=== PATIENT | female | born 1965 | race African-American/Black ===

== ENCOUNTER → 2023-06-20 09:39 | Outpatient (CLI) | payer OTHER, MEDICAID, SELFPAY ==
[2023-06-20 10:36] LABS: Add Manual Diff / Slide Review NO; Basophils Absolute Auto 100 /uL (0-100); Basophils Percent Auto 0.5 % (0-2); Eosinophils Absolute Auto 300 /uL (0-450); Eosinophils Percent Auto 2.6 % (2-4); Hematocrit 35.3 % (36-46); Hemoglobin 11.6 g/dL (12.0-16.0); Lymphocytes Absolute Auto 3300 /uL (1100-4500); Lymphocytes Percent Auto 25.3 % (25-40); Mean Corpuscular Hemoglobin 28.2 PG (26-34); Mean Corpuscular Volume 85.6 fL (80-100); Monocytes Absolute Auto 600 /uL (0-900); Monocytes Percent Auto 4.8 % (3-14); Neutrophils Absolute Auto 8800 /uL (1500-7000); Neutrophils Percent Auto 66.8 % (50-75); Platelet Count 328 X10^3/uL (150-400); Red Blood Cell Count 4.12 X10^6/uL (4.0-5.2); White Blood Cell Count 13.1 X10^3/uL (4.5-11.0)
[2023-06-20 10:42] LABS: Hemoglobin A1C% w Est Avg Glu 5.5 % (4.0-6.0)
[2023-06-20 10:53] LABS: Alanine Aminotransferase 20 IU/L (<35); Albumin 4.7 g/dL (3.5-5.0); Albumin Globulin Ratio 1.3 (1.0-2.8); Alkaline Phosphatase 64 U/L (38-126); Aspartate Aminotransferase 29 IU/L (14-36); BUN Creatinine Ratio 20.7 (6-22); Bilirubin Total 0.8 mg/dL (0.2-1.3); Blood Urea Nitrogen 12 mg/dL (7-17); Carbon Dioxide 25 mmol/L (22-32); Chloride 104 mmol/L (98-107); Cholesterol 182 mg/dL (140-199); Estimated Glomerular Filt Rate > 60 mL/min (>60); Globulin 3.5 g/dL (1.7-4.1); Glucose 94 mg/dL (70-100); HDL Cholesterol 69 mg/dL (40-60); HEMOLYSIS < 15 (0-50); LDL Cholesterol Calculated 97 mg/dL (<100); Sodium 142 mmol/L (137-145); Total Protein 8.2 g/dL (6.3-8.2); Triglycerides 81 mg/dL (35-150)
[2023-06-20 10:58] LABS: Rheumatoid Factor < 8.6 IU/mL (<12.0)
[2023-06-20 11:24] LABS: TSH w/ Reflex to FT4 0.79 uIU/mL (0.47-4.68)
[2023-06-24 15:36] LABS: Deamidated Gliadin Ab IgA 7 units (0-19); Deamidated Gliadin Ab IgG 2 units (0-19); Immunoglobulin A,Qn 263 mg/dL (87-352); t-Transglutaminase IgA 3 U/mL (0-3)
[2023-06-24 17:47] LABS: CCP Antibodies IgG/IgA 8 units (0-19)
== END ==
PROVIDERS: PCP Family Medicine; Referring Provider Family Medicine; Visit Provider Family Medicine
DX: K46.9 Unspecified abdominal hernia without obstruction or gangrene (principal); M79.643 Pain in unspecified hand; R14.3 Flatulence; I10 Essential (primary) hypertension; E78.5 Hyperlipidemia, unspecified; M79.10 Myalgia, unspecified site
CPT/HCPCS: 36415; 80053; 80061; 82784; 83036; 83516; 84443; 85025; 86200; 86430

== ENCOUNTER → 2023-07-08 06:34 | Outpatient (CLI) | payer OTHER, MEDICAID, SELFPAY ==
--- NOTE | 2023-07-08 06:36 | DI.US.S_ITS ---
PROCEDURE: US ABDOMEN COMPLETE INDICATIONS: FLATUS TECHNIQUE: Real-time scanning was performed of the abdominal and retroperitoneal organs, with image documentation. COMPARISON: None. FINDINGS: Liver: The liver measures 18.2 cm in length and demonstrates slightly increased echogenicity. Gallbladder: The gallbladder is not visualized and may be surgically absent. Biliary ducts: Intrahepatic bile ducts are non-dilated. Extrahepatic bile duct caliber measures 7.7 mm. Normal is 6-7 mm or less in diameter, or 10 mm or less post-cholecystectomy. Pancreas: Visualized portions of the pancreas are sonographically normal. The tail of the pancreas is not visualized. Spleen: Spleen is normal in size and homogeneous in echotexture. Kidneys: Kidneys are normal in size and echotexture. Right kidney measures 11.7 cm long; left kidney measures 12.6 cm long. No hydronephrosis or nephrolithiasis. No solid masses. Aorta: Visualized aorta is normal in caliber at less than 3 cm. Iliacs: Proximal common iliac arteries are normal in caliber at less than 2.5 cm. IVC: Intrahepatic inferior vena cava is patent. Miscellaneous: No free abdominal fluid. There is a reducible, fat containing ventral hernia in the epigastric region. IMPRESSION: 1. Increased hepatic echogenicity noted likely related to fatty infiltration of the liver but other sources of hepatocellular disease cannot be excluded. 2. Gallbladder not visualized. Cholecystectomy suspected. 3. Fat containing reducible ventral hernia. Dictated by: Sonya De M.D. on 07/08/2023 at 10:31 Approved by: Sonya De M.D. on 07/08/2023 at 10:34
== END ==
LOC: US 06:34
PROVIDERS: PCP Family Medicine; Referring Provider Family Medicine; Visit Provider Family Medicine
DX: K43.9 Ventral hernia without obstruction or gangrene (principal); R14.3 Flatulence
CPT/HCPCS: 76700

== ENCOUNTER → 2023-07-11 06:30 | Outpatient (CLI) | payer OTHER, MEDICAID, SELFPAY ==
--- NOTE | 2023-07-11 06:31 | DI.US.S_ITS ---
PROCEDURE: US PELVIC COMPLETE INDICATIONS: concern for possibility of ovarian cancer with symptoms TECHNIQUE: Real-time scanning was performed of the pelvic organs, with image documentation. Additional endovaginal scanning was necessary due to incomplete visualization of the adnexal and endometrial structures by transabdominal scanning. COMPARISON: None. FINDINGS: Limited exam due to bowel gas. Uterus: Surgically absent Ovaries: The right ovary is not seen. A possible left ovary is seen transabdominally measuring 1.4 x 2.1 x 1.1 cm and is grossly unremarkable in appearance Other: No pathologic free abdominal or pelvic fluid. IMPRESSION: 1. Limited exam secondary to bowel gas. 2. The right ovary is not seen. A possible left ovary is seen transabdominally and is grossly normal in appearance. 3. Status post hysterectomy. We strive to produce accurate, complete, and clear reports of imaging services. To assist us in improving patient care, this report was composed using standard report templates and voice recognition software. Therefore, it may contain abnormal punctuation, insertions and/or omissions. Occasional wrong-word or sound-alike substitutions may occur. Though we review the report and make efforts to correct it, we do recommend that the report be read carefully in proper context to recognize any text inaccuracies. Dictated by: Manuelito Mckenzie M.D. on 07/11/2023 at 8:45 Approved by: Manuelito Mckenzie M.D. on 07/11/2023 at 8:47
== END ==
LOC: US 06:30
PROVIDERS: PCP Family Medicine; Referring Provider Family Medicine; Visit Provider Family Medicine
DX: Z85.42 Personal history of malignant neoplasm of other parts of uterus (principal); Z08 Encounter for follow-up examination after completed treatment for malignant neoplasm; Z90.710 Acquired absence of both cervix and uterus
CPT/HCPCS: 76830; 76856

== ENCOUNTER → 2024-05-07 07:40 | Outpatient (CLI) | payer OTHER, SELFPAY ==
--- NOTE | 2024-05-07 07:41 | DI.MG.S_ITS ---
BILATERAL DIGITAL SCREENING MAMMOGRAM 3D/2D WITH CAD: 05/07/2024 CLINICAL: Routine screening. Family history of breast cancer. Comparison is made to exams dated: 04/23/2022 mammogram and 06/15/2019 mammogram - Outside facility. There are scattered areas of fibroglandular density (category b / 25%-50% glandular tissue). Current study was also evaluated with a Computer Aided Detection (CAD) system. No significant masses, calcifications, or other findings are seen in either breast. There has been no significant interval change. IMPRESSION: NEGATIVE There is no mammographic evidence of malignancy. A 1 year screening mammogram is recommended. Based on the Tyrer Cuzick model (a risk assessment model) the patient's lifetime risk is 5.2% and her 10 year risk is 1.8%. According to the ACR, ACS, and NCCN guidelines, an annual breast MRI exam along with mammogram is recommended if the patient's lifetime risk is 20% or greater. This exam was interpreted at Station ID: [id number]. NOTE: For mammograms, a report in lay terms will be sent to the patient. Approximately 15% of breast malignancies will not be visualized mammographically. In the management of a palpable breast mass, a negative mammogram must not discourage biopsy of a clinically suspicious lesion. Electronically Signed By: Jose lugo/essence:05/07/2024 09:08:14 letter sent: Normal Exam ACR BI-RADS Category 1: Negative
[2024-05-07 08:15] LABS: Add Manual Diff / Slide Review NO; Basophils Absolute Auto 200 /uL (0-100); Basophils Percent Auto 1.2 % (0-2); Eosinophils Absolute Auto 400 /uL (0-450); Eosinophils Percent Auto 2.3 % (2-4); Hematocrit 35.7 % (36-46); Hemoglobin 11.9 g/dL (12.0-16.0); Lymphocytes Absolute Auto 4400 /uL (1100-4500); Lymphocytes Percent Auto 27.8 % (25-40); Mean Corpuscular HGB Conc 33.4 % (30-36); Mean Corpuscular Hemoglobin 29.4 PG (26-34); Monocytes Absolute Auto 800 /uL (0-900); Monocytes Percent Auto 4.8 % (3-14); Neutrophils Absolute Auto 10100 /uL (1500-7000); Neutrophils Percent Auto 63.9 % (50-75); Platelet Count 331 X10^3/uL (150-400); Red Blood Cell Count 4.06 X10^6/uL (4.0-5.2); Red Cell Distribution Width 14.6 % (11.6-14.8); White Blood Cell Count 15.8 X10^3/uL (4.5-11.0)
[2024-05-07 08:35] LABS: HEMOLYSIS < 15 (0-50); Iron 78 ug/dL (37-170)
[2024-05-07 08:38] LABS: Alanine Aminotransferase 20 IU/L (<35); Albumin 4.3 g/dL (3.5-5.0); Albumin Globulin Ratio 1.3 (1.0-2.8); Alkaline Phosphatase 68 U/L (38-126); Aspartate Aminotransferase 29 IU/L (14-36); BUN Creatinine Ratio 22.5 (6-22); Bilirubin Total 0.6 mg/dL (0.2-1.3); Blood Urea Nitrogen 16 mg/dL (7-17); Calcium 9.9 mg/dL (8.4-10.2); Carbon Dioxide 23 mmol/L (22-32); Chloride 107 mmol/L (98-107); Cholesterol 273 mg/dL (140-199); Estimated Glomerular Filt Rate > 60 mL/min (>60); Globulin 3.3 g/dL (1.7-4.1); Glucose 104 mg/dL (70-100); HDL Cholesterol 86 mg/dL (40-60); HEMOLYSIS 17 (0-50); LDL Cholesterol Calculated 133 mg/dL (<100); Potassium 4.2 mmol/L (3.4-5.1); Sodium 138 mmol/L (137-145); Total Protein 7.6 g/dL (6.3-8.2); Triglycerides 270 mg/dL (35-150)
[2024-05-07 08:46] LABS: Hemoglobin A1C% w Est Avg Glu 5.4 % (4.0-6.0)
[2024-05-07 08:47] LABS: Percent Iron Saturation 24 % (15-50); Total Iron Binding Capacity 321 ug/dL (265-497); Transferrin 307 mg/dL (206-381)
[2024-05-07 09:40] LABS: Folate 5.3 ng/mL (2.76-20.0); Vitamin B12 237 pg/mL (239-931)
== END ==
PROVIDERS: Family Provider Family Medicine; PCP Family Medicine; Referring Provider Family Medicine; Visit Provider Family Medicine
DX: Z12.31 Encounter for screening mammogram for malignant neoplasm of breast (principal); Z80.3 Family history of malignant neoplasm of breast; D64.9 Anemia, unspecified; R13.10 Dysphagia, unspecified; C55 Malignant neoplasm of uterus, part unspecified; E78.5 Hyperlipidemia, unspecified; I10 Essential (primary) hypertension
CPT/HCPCS: 36415; 77063; 77067; 80053; 80061; 82607; 82746; 83036; 83540; 83550; 85025

== ENCOUNTER → 2024-05-14 08:53 | Outpatient (CLI) | payer OTHER, SELFPAY ==
--- NOTE | 2024-05-14 08:55 | DI.RAD.S_ITS ---
PROCEDURE: FL BARIUM SWALLOW INDICATIONS: DYSPHAGIA COMPARISON: None. FINDINGS: Function: There is normal esophageal peristalsis. No elicited gastroesophageal reflux. There is normal transit of a calibrated barium tablet through the esophagus into the stomach. Morphology: Air-contrast images demonstrate normal mucosal morphology. Single contrast views show no esophageal strictures, extrinsic mass effects, or diverticula. Limited images of the stomach demonstrate normal appearance. IMPRESSION: 1. Normal esophageal peristalsis. No significant esophageal dysmotility. 2. No elicited gastroesophageal reflux. Dictated by: Manuelito Mckenzie M.D. on 05/14/2024 at 10:37 Approved by: Manuelito Mckenzie M.D. on 05/14/2024 at 11:01
== END ==
PROVIDERS: Family Provider Family Medicine; PCP Family Medicine; Referring Provider Radiology Diagnostic Radiology; Visit Provider Radiology Diagnostic Radiology
DX: R13.10 Dysphagia, unspecified (principal)
CPT/HCPCS: 74220

== ENCOUNTER → 2024-06-04 08:24 | Outpatient (CLI) | payer OTHER, SELFPAY ==
--- NOTE | 2024-06-04 08:25 | DI.RAD.S_ITS ---
PROCEDURE: XR LUMBAR SPINE 2-3V INDICATIONS: Chronic low back pain without sciatica, unspecified back lulu TECHNIQUE: 3 views of the lumbar spine were acquired. COMPARISON: None. FINDINGS: Bones: 5 [id number] vertebrae are present. There is normal bony alignment. No vertebral body compression fractures. No suspicious bony lesions. There is joint space narrowing at L5-S1. There is no malalignment. There is mild facet joint disease at L4 and L5 levels. Soft tissues: Overlying bowel gas pattern is normal. No suspicious soft tissue calcifications. IMPRESSION: Degenerative changes in the lumbar spine as noted above. Dictated by: David May M.D. on 06/04/2024 at 8:45 Approved by: David May M.D. on 06/04/2024 at 8:48
--- NOTE | 2024-06-04 08:25 | DI.RAD.S_ITS ---
PROCEDURE: XR HIP W PEL IF DONE RT 2V INDICATIONS: Pain of right hip TECHNIQUE: 2 views of the hip were acquired. COMPARISON: None. FINDINGS: Bones: No fractures or dislocations. No suspicious bony lesions. The visualized pelvic ring appears intact. Nonuniform joint space narrowing and osteophytic lipping of the acetabuli. Subchondral cystic change of the right hip, without bony deformity. Soft tissues: No suspicious soft tissue calcifications or masses. Surgical clips along the left pelvic sidewall. IMPRESSION: Moderate to severe right hip osteoarthritis. Dictated by: Mika Yao M.D. on 06/04/2024 at 14:23 Approved by: Mika Yao M.D. on 06/04/2024 at 14:23
== END ==
PROVIDERS: Family Provider Family Medicine; PCP Family Medicine; Referring Provider Family Medicine; Visit Provider Family Medicine
DX: M54.9 Dorsalgia, unspecified (principal); G89.29 Other chronic pain; M25.559 Pain in unspecified hip; M47.816 Spondylosis without myelopathy or radiculopathy, lumbar region; M16.11 Unilateral primary osteoarthritis, right hip
CPT/HCPCS: 72100; 73502

== ENCOUNTER 2024-06-14 07:30 | Outpatient (RCR) | payer OTHER, SELFPAY ==
--- NOTE | 2024-05-26 18:22 | PT.OIE ---
Current Diagnoses Other chronic pain (05/26/24) Cervicalgia (05/26/24) Dorsalgia, unspecified (05/26/24) Myalgia, unspecified site (05/26/24) Abnormal posture (05/26/24) Past Medical History (Last Updated 07/04/23 @ 20:02 by Breonna Lopez) Eczema Hand pain HLD (hyperlipidemia) HTN (hypertension) Sleep disturbance Uterine cancer Past Surgical History (Last Updated 06/19/23 @ 16:11 by Debora Fuentes MD) History of delivery History of hysterectomy History of umbilical hernia repair Visit Care Team Role Provider Type Debora Fuentes MD Attending Provider Physician Family Provider Primary Care Provider Referring Provider Specialty: Family Practice TECHNOLOGY INSTRUCTOR Address: [address] [place] [address], [facility] Email: [email or web address] Physical Therapy Initial Evaluation PT-OP-A Visit Information Start: 05/25/24 18:13 Freq: Status: Active Protocol: Document 05/26/24 09:09 [facility] (Rec: 05/26/24 09:50 [facility] [id number]) Out-Patient Physical Therapy Visit Information Visit Information Visit Type Initial Evaluation Visit Start Time 09:07 Visit Stop Time 09:47 Visit Number 1 Number of SUPERVISOR WET ROOM Visits 0 PT-OP-B Current Condition Start: 05/25/24 18:13 Freq: Status: Active Protocol: Document 05/26/24 09:09 [facility] (Rec: 05/26/24 09:50 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 She has pain between neck and LB. She has a calmer life but does work 7 days a week ([employer] and [employer]). Pain hasn't gotten better since doing less hard jobs. denies any MVA or injury that started this. occ will hear heart beat in ear d/t some BP issues. She is working w/MD re: BP. occ gets dizzy when sit up from bed. denies any other time. Reports she has been swollen in abdomen. Reports a lot of flatulence and hemroids. Had a barium swallow. BM regular. She occ ends up vomitting. Denies radiating symptoms in UEs/LEs. Wears back brace and it helps only some. Had uterine cancer and hysterectomy (2012)-having further follow up with this as a result. Had 4 c sections. Treatment Goals Patient/Caregiver Goals Dec pain when working PT-OP-C Subjective Start: 05/25/24 18:13 Freq: Status: Active Protocol: Document 05/26/24 09:09 [facility] (Rec: 05/26/24 09:50 [facility] [id number]) OP-PT Pain Assessment Location LB Pain Location Details lumbar to B buttocks Description With Movement Frequency Frequent Pain Aggravating Factors Standing,Bending,Lifting Other Pain Aggravating Factors long standing/walking, work Other Pain Alleviating Factors alieve (4 in AM and then take again later in day) neck Pain Location Details lower neck Description With Movement Frequency Frequent Radiating Location up back of neck to occipital region Pain Aggravating Factors Lifting Other Pain Aggravating Factors overhead reach, once rests Other Pain Alleviating Factors alieve (4 in AM and then take again later in day) PT-OP-G Mobility & Gait Start: 05/25/24 18:13 Freq: Status: Active Protocol: Document 05/26/24 09:09 [facility] (Rec: 05/26/24 09:50 [facility] [id number]) OP Gait Assessment Comments Gait Comments excessive rotation upper lumbar during gait, lat lean and dec push off PT-OP-J Posture/Palpation/Skin Start: 05/25/24 18:13 Freq: Status: Active Protocol: Document 05/26/24 09:09 [facility] (Rec: 05/26/24 09:50 [facility] [id number]) Posture Evaluation [facility] Postural Classification System [facility] Postural Classifications Posterior/Anterior Vertical Compression Test 1 Elbow Flexion Test 0 Lumbar Protective Mechanism Left AP 0 Lumbar Protective Mechanism Right AP 0 Lumbar Protective Mechanism Left PA 0 Lumbar Protective Mechanism Right PA 0 Comments Posture Comments L iliac crest higher, equal leg length, IR of L>R femur, L pelvic shear, L trunk rot, R scap mofr ant tipped, fwd neck , inc kyphosis, ant pelvic tilt PT-OP-L Special Tests Start: 05/25/24 18:13 Freq: Status: Active Protocol: Document 05/26/24 09:09 [facility] (Rec: 05/26/24 09:50 [facility] [id number]) Special Tests Lumbar Spine Special Tests Slump Test Results positiv B PT-OP-M Strength Start: 05/25/24 18:13 Freq: Status: Active Protocol: Document 05/26/24 09:09 [facility] (Rec: 05/26/24 09:50 [facility] [id number]) Hip Strength Hip Manual Muscle Testing Right Flexion (L2) 3+ Fair+ Extension (S1) 3 Fair Abduction 3 Fair External Rotation 4 Good Internal Rotation 5 Normal Left Flexion (L2) 3+ Fair+ Extension (S1) 3 Fair Abduction 3 Fair External Rotation 3 Fair Internal Rotation 5 Normal Knee Strength Knee Manual Muscle Testing Right Flexion (S2) 5 Normal Extension (L3) 5 Normal Left Flexion (S2) 5 Normal Extension (L3) 5 Normal PT-OP-T Assessment and Plan Start: 05/25/24 18:13 Freq: Status: Active Protocol: Document 05/26/24 09:09 [facility] (Rec: 05/26/24 09:50 [facility] [id number]) Physical Therapy Assessment Rehab Potential Rehabilitation Potential Good Evaluation Complexity Number of Personal Factors/Comorbidities 3 or More Number of Body Systems Impaired 4 or More Clinical Presentation at Evaluation Evolving Impairments Impairments Activity Tolerance,Balance, Functional Activities, Functional Mobility,Gait,Pain, Posture,ROM,Soft Tissue Mobility,Strength Other Concerns Barriers to Rehabilitation insurance limitation of visits Goals posture Fdc Goal (LTG) Pt will have improved posture by improvement in VCT to at least 4/5 to allwo greater time in standing w/o inc pain LTG Duration 4/2 ROM Short Term Goal (STG) Pt will report improved ease w /movement w/hips w/less feeling of tightness/ restriction STG Duration 3/2 [employer] Leader Goal (LTG) Pt will have w/in 80% of full range cervical ROM w/o inc pain to allow improved function LTG Duration 4/2 strength Short Term Goal (STG) Pt will be indep w/HEP STG Duration 3/2 [employer] Goal (LTG) Pt will score at least 4+/5 on MMT BLE and at least 3/5 EFT &LPM to show improved stability. 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 She has had multiple abdominal surgeries including C sections x4 and hysterectomy for uterine cancer which likely contributes to the pain d/t scar tissue. She also has significant hip and core weakness along impaired posture likely contributing to the neck and back pain. Pt would benefit from skilled PT to improve function and dec pain. Physical Therapy Plan Frequency and Duration Frequency of Treatment 2x/Week Duration of treatment (weeks) 10 Plan of Care Start Date 05/26/24 Plan of Care End Date 08/04/24 Therapeutic Interventions Therapeutic Interventions Balance Training,Gait Training ,Home Exercise Program,Joint Mobilizations,Manual Therapy, Neuromuscular Re-education, Patient/Caregiver Education, Self-Care/Home Management,Soft Tissue Mobilization,Taping, Therapeutic Activities, Therapeutic Exercises Modalities Cold Pack/Ice Massage,Electric Stimulation,Hot Packs, Infrared Therapy,Traction- Mechanical,Ultrasound Next Visit Focus/Plan Next Note Type Treatment Note Next Visit Plan Cervical ROM measurments * short visits when able d/t insurance limitations* HEP: paloff press, sidesteps, bridge,w all posture, open book,s eated SL hip flex iso for core manual: improve thoracic mobility, innominate and hip mobility
--- NOTE | 2024-05-26 18:23 | PT.OPPOC ---
Physical, Occupational & Speech Therapy At [facility] Current Diagnoses Other chronic pain (05/26/24) Cervicalgia (05/26/24) Dorsalgia, unspecified (05/26/24) Myalgia, unspecified site (05/26/24) Abnormal posture (05/26/24) Visit Care Team Role Provider Type Debora Fuentes MD Attending Provider Physician Family Provider Primary Care Provider Referring Provider Specialty: Family Practice MANAGEMENT SUPERVISOR Address: [facility] 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 She has pain between neck and LB. She has a calmer life but does work 7 days a week ([employer] and [employer]). Pain hasn't gotten better since doing less hard jobs. denies any MVA or injury that started this. occ will hear heart beat in ear d/t some BP issues. She is working w/MD re: BP. occ gets dizzy when sit up from bed. denies any other time. Reports she has been swollen in abdomen. Reports a lot of flatulence and hemroids. Had a barium swallow. BM regular. She occ ends up vomitting. Denies radiating symptoms in UEs/LEs. Wears back brace and it helps only some. Had uterine cancer and hysterectomy (2012)-having further follow up with this as a result. Had 4 c sections. Treatment Goals Patient/Caregiver Goals Dec pain when working PT-OP-T Assessment and Plan Start: 05/25/24 18:13 Freq: Status: Active Protocol: Document 05/26/24 09:09 [facility] (Rec: 05/26/24 09:50 [facility] [id number]) Physical Therapy Assessment Rehab Potential Rehabilitation Potential Good Evaluation Complexity Number of Personal Factors/Comorbidities 3 or More Number of Body Systems Impaired 4 or More Clinical Presentation at Evaluation Evolving Impairments Impairments Activity Tolerance,Balance, Functional Activities, Functional Mobility,Gait,Pain, Posture,ROM,Soft Tissue Mobility,Strength Other Concerns Barriers to Rehabilitation insurance limitation of visits Goals posture Jail Goal (LTG) Pt will have improved posture by improvement in VCT to at least 4/5 to allwo greater time in standing w/o inc pain LTG Duration 4/2 ROM Short Term Goal (STG) Pt will report improved ease w /movement w/hips w/less feeling of tightness/ restriction STG Duration 3/2 Jail Goal (LTG) Pt will have w/in 80% of full range cervical ROM w/o inc pain to allow improved function LTG Duration 4/2 strength Short Term Goal (STG) Pt will be indep w/HEP STG Duration 3/2 Jail Goal (LTG) Pt will score at least 4+/5 on MMT BLE and at least 3/5 EFT &LPM to show improved stability. 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 She has had multiple abdominal surgeries including C sections x4 and hysterectomy for uterine cancer which likely contributes to the pain d/t scar tissue. She also has significant hip and core weakness along impaired posture likely contributing to the neck and back pain. Pt would benefit from skilled PT to improve function and dec pain. Physical Therapy Plan Frequency and Duration Frequency of Treatment 2x/Week Duration of treatment (weeks) 10 Plan of Care Start Date 05/26/24 Plan of Care End Date 08/04/24 Therapeutic Interventions Therapeutic Interventions Balance Training,Gait Training ,Home Exercise Program,Joint Mobilizations,Manual Therapy, Neuromuscular Re-education, Patient/Caregiver Education, Self-Care/Home Management,Soft Tissue Mobilization,Taping, Therapeutic Activities, Therapeutic Exercises Modalities Cold Pack/Ice Massage,Electric Stimulation,Hot Packs, Infrared Therapy,Traction- Mechanical,Ultrasound Next Visit Focus/Plan Next Note Type Treatment Note Next Visit Plan Cervical ROM measurments * short visits when able d/t insurance limitations* HEP: paloff press, sidesteps, bridge,w all posture, open book,s eated SL hip flex iso for core manual: improve thoracic mobility, innominate and hip mobility Plan of Care Dates Plan of Care Start Date 05/26/24 Plan of Care End Date 08/04/24 Electronically Signed by: Aye Kaba, PT 05/26/24 2729 If you are in agreement with this Plan of Care, please return a signed and dated copy. I have reviewed this Plan of Care and certify that the skilled therapy services above are required to meet the patient?s needs. Physician Signature Date Printed Name and Credentials Clinical Instructor Signature Printed Name and Credentials
--- NOTE | 2024-06-01 12:32 | PT.OTN ---
Current Diagnoses Other chronic pain (06/01/24) Cervicalgia (06/01/24) Dorsalgia, unspecified (06/01/24) Myalgia, unspecified site (06/01/24) Abnormal posture (06/01/24) Physical Therapy Treatment Note PT-OP-A Visit Information Start: 05/25/24 18:13 Freq: Status: Active Protocol: Document 06/01/24 11:36 [facility] (Rec: 06/01/24 12:32 [facility] [id number]) Out-Patient Physical Therapy Visit Information Visit Information Visit Type Treatment Note Visit Start Time 11:37 Visit Stop Time 12:17 Visit Number 2 Number of HISTORICAL MANUSCRIPTS CURATOR Visits 0 PT-OP-B Current Condition Start: 05/25/24 18:13 Freq: Status: Active Protocol: Document 05/26/24 09:09 [facility] (Rec: 05/26/24 09:50 [facility] [id number]) Current Condition History of Current Condition Onset Date about 19 years Current Complaints neck to LB History of Current Condition 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 She has pain between neck and LB. She has a calmer life but does work 7 days a week ([employer] and [employer]). Pain hasn't gotten better since doing less hard jobs. denies any MVA or injury that started this. occ will hear heart beat in ear d/t some BP issues. She is working w/MD re: BP. occ gets dizzy when sit up from bed. denies any other time. Reports she has been swollen in abdomen. Reports a lot of flatulence and hemroids. Had a barium swallow. BM regular. She occ ends up vomitting. Denies radiating symptoms in UEs/LEs. Wears back brace and it helps only some. Had uterine cancer and hysterectomy (2012)-having further follow up with this as a result. Had 4 c sections. Treatment Goals Patient/Caregiver Goals Dec pain when working PT-OP-C Subjective Start: 05/25/24 18:13 Freq: Status: Active Protocol: Document 06/01/24 11:36 [facility] (Rec: 06/01/24 12:32 [facility] [id number]) OP-PT Subjective Patient Comments Patient Comments Pt reports R>L hip really restrict her ability to move PT-OP-G Mobility & Gait Start: 05/25/24 18:13 Freq: Status: Active Protocol: Document 05/26/24 09:09 [facility] (Rec: 05/26/24 09:50 [facility] [id number]) OP Gait Assessment Comments Gait Comments excessive rotation upper lumbar during gait, lat lean and dec push off PT-OP-J Posture/Palpation/Skin Start: 05/25/24 18:13 Freq: Status: Active Protocol: Document 05/26/24 09:09 [facility] (Rec: 05/26/24 09:50 [facility] [id number]) Posture Evaluation [facility] Postural Classification System [facility] Postural Classifications Posterior/Anterior Vertical Compression Test 1 Elbow Flexion Test 0 Lumbar Protective Mechanism Left AP 0 Lumbar Protective Mechanism Right AP 0 Lumbar Protective Mechanism Left PA 0 Lumbar Protective Mechanism Right PA 0 Comments Posture Comments L iliac crest higher, equal leg length, IR of L>R femur, L pelvic shear, L trunk rot, R scap mofr ant tipped, fwd neck , inc kyphosis, ant pelvic tilt PT-OP-K Range of Motion Start: 05/25/24 18:13 Freq: Status: Active Protocol: Document 06/01/24 11:36 [facility] (Rec: 06/01/24 12:32 [facility] [id number]) Cervical Spine Range of Motion Cervical Spine Active Degrees Flexion 27 Extension 16 Rotation Left 34 Rotation Right 35 Lateral Flexion Left 16 Lateral Flexion Right 10 ROM Limitations Pain PT-OP-L Special Tests Start: 05/25/24 18:13 Freq: Status: Active Protocol: Document 05/26/24 09:09 [facility] (Rec: 05/26/24 09:50 [facility] [id number]) Special Tests Lumbar Spine Special Tests Slump Test Results positiv B PT-OP-M Strength Start: 05/25/24 18:13 Freq: Status: Active Protocol: Document 05/26/24 09:09 [facility] (Rec: 05/26/24 09:50 [facility] [id number]) Hip Strength Hip Manual Muscle Testing Right Flexion (L2) 3+ Fair+ Extension (S1) 3 Fair Abduction 3 Fair External Rotation 4 Good Internal Rotation 5 Normal Left Flexion (L2) 3+ Fair+ Extension (S1) 3 Fair Abduction 3 Fair External Rotation 3 Fair Internal Rotation 5 Normal Knee Strength Knee Manual Muscle Testing Right Flexion (S2) 5 Normal Extension (L3) 5 Normal Left Flexion (S2) 5 Normal Extension (L3) 5 Normal PT-OP-Q Treatments Start: 05/25/24 18:13 Freq: Status: Active Protocol: Document 06/01/24 11:36 [facility] (Rec: 06/01/24 12:32 [facility] [id number]) Therapeutic Exercises Sidelying Exercises open book Side bilateral Reps/Minutes 15 ea Comments cues for position and tspine rot focus clamshell Side bilateral Reps/Minutes 15 ea Comments cues to avoid rolling Sitting Exercises cervical stretches Sitting Exercise Name 1. LS Side bilateral Reps/Minutes 30 sec ea hip stretches Sitting Exercise Name 1. HS 2. piriformis 3. figure 4 Side bilateral Reps/Minutes 1. 45 sec B 2 and 3. unable to do w/o inc pain Standing Exercises stretch Standing Exercise Name hip flexor Side bilateral Comments attempted B mult times w/cues but just gets pain in back so stopped sidestep Side bilateral Equipment Used L1 at ankles Reps/Minutes 15ft ea Comments cues posture and no lat lean paloff press Side bilateral Equipment Used 2 lvl 1 bands Reps/Minutes 15 ea Comments cues core and staying stable Manual Therapy Treatment Consent Patient gave verbal consent for manual Yes treatment Joint Mobilizations hip Grade II Body Position Hooklying Comments IR and ER free the ball B and inf glide c/r PT-OP-T Assessment and Plan Start: 05/25/24 18:13 Freq: Status: Active Protocol: Document 06/01/24 11:36 [facility] (Rec: 06/01/24 12:32 [facility] [id number]) Physical Therapy Assessment Goals posture Fpc Goal (LTG) Pt will have improved posture by improvement in VCT to at least 4/5 to allwo greater time in standing w/o inc pain LTG Duration 4/2 ROM Short Term Goal (STG) Pt will report improved ease w /movement w/hips w/less feeling of tightness/ restriction STG Duration 3/2 Book Reviewer Goal (LTG) Pt will have w/in 80% of full range cervical ROM w/o inc pain to allow improved function LTG Duration 4/2 strength Short Term Goal (STG) Pt will be indep w/HEP STG Duration 3/2 Fpc Goal (LTG) Pt will score at least 4+/5 on MMT BLE and at least 3/5 EFT &LPM to show improved stability. LTG Duration 4/2 Assessment Summary Assessment min improved L hip flex and IR B w/manual to hips. She had pain w/mobs on R even w/gentle mobs so may benefit from imaging of hips. She requires cues for form with exercises for form and posture throughout. Unable to get hip stretches except HS stretch d/ t limit of hip pain lat. Physical Therapy Plan Frequency and Duration Frequency of Treatment 2x/Week Duration of treatment (weeks) 10 Plan of Care Start Date 05/26/24 Plan of Care End Date 08/04/24 Next Visit Focus/Plan Next Note Type Treatment Note Next Visit Plan * short visits when able d/t insurance limitations* review exercises, further core and hip stability as pt tolerates manual: improve thoracic mobility, innominate and hip mobility
--- NOTE | 2024-06-07 08:12 | PT.OTN ---
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 She has pain between neck and LB. She has a calmer life but does work 7 days a week ([employer] and [employer]). Pain hasn't gotten better since doing less hard jobs. denies any MVA or injury that started this. occ will hear heart beat in ear d/t some BP issues. She is working w/MD re: BP. occ gets dizzy when sit up from bed. denies any other time. Reports she has been swollen in abdomen. Reports a lot of flatulence and hemroids. Had a barium swallow. BM regular. She occ ends up vomitting. Denies radiating symptoms in UEs/LEs. Wears back brace and it helps only some. Had uterine cancer and hysterectomy (2012)-having further follow up with this as a result. Had 4 c sections. Treatment Goals Patient/Caregiver Goals Dec pain when working PT-OP-C Subjective Start: 05/25/24 18:13 Freq: Status: Active Protocol: Document 06/07/24 07:31 [facility] (Rec: 06/07/24 08:17 [facility] [id number]) OP-PT Subjective Patient Comments Patient Comments Pt reports hurts all the time. The HEP feels fine to issues and compliant doing. She hasnt ' noticed the HEP helping decrease pain yet. Patient Reported Progress Same PT-OP-G Mobility & Gait Start: 05/25/24 18:13 Freq: Status: Active Protocol: Document 05/26/24 09:09 [facility] (Rec: 05/26/24 09:50 [facility] [id number]) OP Gait Assessment Comments Gait Comments excessive rotation upper lumbar during gait, lat lean and dec push off PT-OP-J Posture/Palpation/Skin Start: 05/25/24 18:13 Freq: Status: Active Protocol: Document 05/26/24 09:09 [facility] (Rec: 05/26/24 09:50 [facility] [id number]) Posture Evaluation [facility] Postural Classification System [facility] Postural Classifications Posterior/Anterior Vertical Compression Test 1 Elbow Flexion Test 0 Lumbar Protective Mechanism Left AP 0 Lumbar Protective Mechanism Right AP 0 Lumbar Protective Mechanism Left PA 0 Lumbar Protective Mechanism Right PA 0 Comments Posture Comments L iliac crest higher, equal leg length, IR of L>R femur, L pelvic shear, L trunk rot, R scap mofr ant tipped, fwd neck , inc kyphosis, ant pelvic tilt PT-OP-K Range of Motion Start: 05/25/24 18:13 Freq: Status: Active Protocol: Document 06/01/24 11:36 [facility] (Rec: 06/01/24 12:32 [facility] [id number]) Cervical Spine Range of Motion Cervical Spine Active Degrees Flexion 27 Extension 16 Rotation Left 34 Rotation Right 35 Lateral Flexion Left 16 Lateral Flexion Right 10 ROM Limitations Pain PT-OP-L Special Tests Start: 05/25/24 18:13 Freq: Status: Active Protocol: Document 05/26/24 09:09 [facility] (Rec: 05/26/24 09:50 [facility] [id number]) Special Tests Lumbar Spine Special Tests Slump Test Results positiv B PT-OP-M Strength Start: 05/25/24 18:13 Freq: Status: Active Protocol: Document 05/26/24 09:09 [facility] (Rec: 05/26/24 09:50 [facility] [id number]) Hip Strength Hip Manual Muscle Testing Right Flexion (L2) 3+ Fair+ Extension (S1) 3 Fair Abduction 3 Fair External Rotation 4 Good Internal Rotation 5 Normal Left Flexion (L2) 3+ Fair+ Extension (S1) 3 Fair Abduction 3 Fair External Rotation 3 Fair Internal Rotation 5 Normal Knee Strength Knee Manual Muscle Testing Right Flexion (S2) 5 Normal Extension (L3) 5 Normal Left Flexion (S2) 5 Normal Extension (L3) 5 Normal PT-OP-Q Treatments Start: 05/25/24 18:13 Freq: Status: Active Protocol: Document 06/07/24 07:31 [facility] (Rec: 06/07/24 08:17 [facility] [id number]) Therapeutic Exercises Supine Exercises Stretching Supine Exercise Name trialed: piriformis, FIg 4 and Maximiliano stretch Side right Comments causes pain, DC Sidelying Exercises open book Side bilateral Reps/Minutes 15 ea Comments cues for position and tspine rot focus, scap glide both directions clamshell Side bilateral Equipment Used top hand on table Reps/Minutes 15 ea Comments cues stacked alignment ASIS over ASIS Standing Exercises stretch Standing Exercise Name LB and adductor (free the hip ) Side bilateral Comments wt shift, hip and LB mobiltiy with good response lessening R hip and LB Other Exercises self STMs Other Exercise Name ball wall: glut, ES Side bilateral Comments good response Manual Therapy Treatment Consent Patient gave verbal consent for manual Yes treatment Soft Tissue Mobilization B hips Body Location hip ERs Mobilization Type Strumming,Sustained Pressure, Other Comments STMs: glut med, piriformis; MWM PA prox femur on axis hip IR/ER R>L Joint Mobilizations hip Grade II Body Position Hooklying Comments Hooklying: IR and ER free the ball B and lateral glide, didn 't tolerate inferior glide today. PT-OP-T Assessment and Plan Start: 05/25/24 18:13 Freq: Status: Active Protocol: Document 06/07/24 07:31 [facility] (Rec: 06/07/24 08:17 [facility] [id number]) Physical Therapy Assessment Goals posture Director Of Email Marketing Goal (LTG) Pt will have improved posture by improvement in VCT to at least 4/5 to allwo greater time in standing w/o inc pain LTG Duration 4/2 ROM Short Term Goal (STG) Pt will report improved ease w /movement w/hips w/less feeling of tightness/ restriction STG Duration 3/2 Director Of Email Marketing Goal (LTG) Pt will have w/in 80% of full range cervical ROM w/o inc pain to allow improved function LTG Duration 4/2 strength Short Term Goal (STG) Pt will be indep w/HEP STG Duration 3/2 Director Of Email Marketing Goal (LTG) Pt will score at least 4+/5 on MMT BLE and at least 3/5 EFT &LPM to show improved stability. LTG Duration 4/2 Assessment Summary Assessment Pt doesn't respond well to supine hip stretching, no pain MWM hip IR/ER. added adductor stretch and hip mobility in side lunge stance rocking each side and stretching hold, improved range and decreased tension with reps. Provided HOs. Physical Therapy Plan Frequency and Duration Frequency of Treatment 2x/Week Duration of treatment (weeks) 10 Plan of Care Start Date 05/26/24 Plan of Care End Date 08/04/24 Therapeutic Interventions Therapeutic Interventions Balance Training,Gait Training ,Home Exercise Program,Joint Mobilizations,Manual Therapy, Neuromuscular Re-education, Patient/Caregiver Education, Self-Care/Home Management,Soft Tissue Mobilization,Taping, Therapeutic Activities, Therapeutic Exercises Modalities Cold Pack/Ice Massage,Electric Stimulation,Hot Packs, Infrared Therapy,Traction- Mechanical,Ultrasound Next Visit Focus/Plan Next Note Type Treatment Note Next Visit Plan * short visits when able d/t insurance limitations* review exercises, further core and hip stability as pt tolerates manual: improve thoracic mobility, innominate and hip mobility
--- NOTE | 2024-06-14 08:08 | PT.OTN ---
Current Diagnoses Other chronic pain (06/14/24) Cervicalgia (06/14/24) Dorsalgia, unspecified (06/14/24) Myalgia, unspecified site (06/14/24) Abnormal posture (06/14/24) Physical Therapy Treatment Note PT-OP-A Visit Information Start: 05/25/24 18:13 Freq: Status: Active Protocol: Document 06/14/24 07:32 SP (Rec: 06/14/24 08:19 SP [id number]) Out-Patient Physical Therapy Visit Information Visit Information Visit Type Treatment Note Visit Note *short 2 unit visits when able d/t insurance limitations Visit Start Time 07:32 Visit Stop Time 08:08 Visit Number 4/ approved Number of [employer] SUPERVISOR Visits 2 PT-OP-B Current Condition Start: 05/25/24 18:13 Freq: Status: Active Protocol: Document 05/26/24 09:09 [facility] (Rec: 05/26/24 09:50 [facility] [id number]) Current Condition History of Current Condition Onset Date about 19 years Current Complaints neck to LB History of Current Condition 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 She has pain between neck and LB. She has a calmer life but does work 7 days a week ([employer]). Pain hasn't gotten better since doing less hard jobs. denies any MVA or injury that started this. occ will hear heart beat in ear d/t some BP issues. She is working w/MD re: BP. occ gets dizzy when sit up from bed. denies any other time. Reports she has been swollen in abdomen. Reports a lot of flatulence and hemroids. Had a barium swallow. BM regular. She occ ends up vomitting. Denies radiating symptoms in UEs/LEs. Wears back brace and it helps only some. Had uterine cancer and hysterectomy (2012)-having further follow up with this as a result. Had 4 c sections. Treatment Goals Patient/Caregiver Goals Dec pain when working PT-OP-C Subjective Start: 05/25/24 18:13 Freq: Status: Active Protocol: Document 06/14/24 07:32 SP (Rec: 06/14/24 08:19 SP [id number]) OP-PT Subjective Patient Comments Patient Comments Pt reports she is good with the seated stretching to help decreased pain and increase mobility. She performs open book and incorporates her self modified supine mobility core boat pose BLE press outs before gets out out of bed to loosen up, when wakes up the morning which helps to be able to move for the day. PT-OP-G Mobility & Gait Start: 05/25/24 18:13 Freq: Status: Active Protocol: Document 05/26/24 09:09 [facility] (Rec: 05/26/24 09:50 [facility] [id number]) OP Gait Assessment Comments Gait Comments excessive rotation upper lumbar during gait, lat lean and dec push off PT-OP-J Posture/Palpation/Skin Start: 05/25/24 18:13 Freq: Status: Active Protocol: Document 05/26/24 09:09 [facility] (Rec: 05/26/24 09:50 [id number] Posture Evaluation [facility] Postural Classification System [facility] Postural Classifications Posterior/Anterior Vertical Compression Test 1 Elbow Flexion Test 0 Lumbar Protective Mechanism Left AP 0 Lumbar Protective Mechanism Right AP 0 Lumbar Protective Mechanism Left PA 0 Lumbar Protective Mechanism Right PA 0 Comments Posture Comments L iliac crest higher, equal leg length, IR of L>R femur, L pelvic shear, L trunk rot, R scap mofr ant tipped, fwd neck , inc kyphosis, ant pelvic tilt PT-OP-K Range of Motion Start: 05/25/24 18:13 Freq: Status: Active Protocol: Document 06/01/24 11:36 [facility] (Rec: 06/01/24 12:32 [facility] [id number]) Cervical Spine Range of Motion Cervical Spine Active Degrees Flexion 27 Extension 16 Rotation Left 34 Rotation Right 35 Lateral Flexion Left 16 Lateral Flexion Right 10 ROM Limitations Pain PT-OP-L Special Tests Start: 05/25/24 18:13 Freq: Status: Active Protocol: Document 05/26/24 09:09 [facility] (Rec: 05/26/24 09:50 [facility] [id number]) Special Tests Lumbar Spine Special Tests Slump Test Results positiv B PT-OP-M Strength Start: 05/25/24 18:13 Freq: Status: Active Protocol: Document 05/26/24 09:09 [facility] (Rec: 05/26/24 09:50 [facility] [id number]) Hip Strength Hip Manual Muscle Testing Right Flexion (L2) 3+ Fair+ Extension (S1) 3 Fair Abduction 3 Fair External Rotation 4 Good Internal Rotation 5 Normal Left Flexion (L2) 3+ Fair+ Extension (S1) 3 Fair Abduction 3 Fair External Rotation 3 Fair Internal Rotation 5 Normal Knee Strength Knee Manual Muscle Testing Right Flexion (S2) 5 Normal Extension (L3) 5 Normal Left Flexion (S2) 5 Normal Extension (L3) 5 Normal PT-OP-Q Treatments Start: 05/25/24 18:13 Freq: Status: Active Protocol: Document 06/14/24 07:32 SP (Rec: 06/14/24 08:19 SP [id number]) Therapeutic Exercises Supine Exercises LTR Supine Exercise Name added to HEp /c HO Side bilateral Resistance AROM Reps/Minutes 10 slow motion Comments QL & LS stretch, cues for TA fac hooklying resisted clamshell Supine Exercise Name added to HEP /c HO Equipment Used TB #2 teal Reps/Minutes 15 reps Modified BLE mobility boat pose Supine Exercise Name reviewed a self HEP: core Equipment Used BLE pressing out together, with head down then lifted as warmed up Reps/Minutes 5 reps x2 Comments good form, no pain DL core press Supine Exercise Name added to HEP: 90/90 isometric- forgot to give copy on HO ( give next tx) Side bilateral Equipment Used hands against knees Reps/Minutes 30 SH x2. Comments good response, no pain Sidelying Exercises open book Sidelying Exercise Name reviewed Side bilateral Reps/Minutes 15 ea Comments cues for position and tspine rot focus, scap glide both directions clamshell Sidelying Exercise Name reviewed Side bilateral Resistance TB #2 teal added today. Equipment Used top hand on table Reps/Minutes 15 ea Comments cues stacked alignment ASIS over ASIS Sitting Exercises hip stretches Sitting Exercise Name 1. HS 2. piriformis 3. figure 4 Side bilateral Reps/Minutes 1. 45 sec B 2 and 3. unable to do w/o inc pain Comments cued straight back/hip hinge during HS Standing Exercises sidestep Side bilateral Equipment Used L1> 2 at ankles Reps/Minutes 15ft ea x2 laps Comments cues posture and no lat lean PT-OP-T Assessment and Plan Start: 05/25/24 18:13 Freq: Status: Active Protocol: Document 06/14/24 07:32 SP (Rec: 06/14/24 08:19 SP [id number]) Physical Therapy Assessment Goals posture Torch Cutter Goal (LTG) Pt will have improved posture by improvement in VCT to at least 4/5 to allwo greater time in standing w/o inc pain LTG Duration 4/2 ROM Short Term Goal (STG) Pt will report improved ease w /movement w/hips w/less feeling of tightness/ restriction STG Duration 3/2 Torch Cutter Goal (LTG) Pt will have w/in 80% of full range cervical ROM w/o inc pain to allow improved function LTG Duration 4/2 strength Short Term Goal (STG) Pt will be indep w/HEP STG Duration 3/2 Intermediate Goal (LTG) Pt will score at least 4+/5 on MMT BLE and at least 3/5 EFT &LPM to show improved stability. LTG Duration 4/2 Assessment Summary Assessment Pt is having good response to warm up TS and LS rotational movements for prep to get out of bed. Initiated core HEP today with cues for slow painfree range, PPT positioning and ability increased resistance with previous clamshells to support spinal stabilization. Physical Therapy Plan Frequency and Duration Frequency of Treatment 2x/Week Duration of treatment (weeks) 10 Plan of Care Start Date 05/26/24 Plan of Care End Date 08/04/24 Therapeutic Interventions Therapeutic Interventions Balance Training,Gait Training ,Home Exercise Program,Joint Mobilizations,Manual Therapy, Neuromuscular Re-education, Patient/Caregiver Education, Self-Care/Home Management,Soft Tissue Mobilization,Taping, Therapeutic Activities, Therapeutic Exercises Modalities Cold Pack/Ice Massage,Electric Stimulation,Hot Packs, Infrared Therapy,Traction- Mechanical,Ultrasound Next Visit Focus/Plan Next Note Type Treatment Note Next Visit Plan * short visits when able d/t insurance limitations* Recheck slow proper form supine clam. Progress core and hip stability as pt tolerates , trial plank and paloff press . manual: improve thoracic mobility, innominate and hip mobility
--- NOTE | 2024-06-23 07:41 | PT-OP ANOTE ---
Pt called re: no show and VM left re: policy and next scheduled visit. phone number given if she wants to reschedule
--- NOTE | 2024-08-18 12:28 | PT.OPDS ---
Current Diagnoses Other chronic pain (06/14/24) Cervicalgia (06/14/24) Dorsalgia, unspecified (06/14/24) Myalgia, unspecified site (06/14/24) Abnormal posture (06/14/24) Visit Care Team Role Provider Type Debora Fuentes MD Attending Provider Physician Family Provider Primary Care Provider Referring Provider Specialty: Family Practice [employer] Address: [address] [place] [address], [facility] Email: [email or web address] Visit Number Visit Number 08/11 approved Discharge Summary PT-OP-B Current Condition Start: 05/25/24 18:13 Freq: Status: Active Protocol: Document 05/26/24 09:09 [facility] (Rec: 05/26/24 09:50 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 She has pain between neck and LB. She has a calmer life but does work 7 days a week ([employer]). Pain hasn't gotten better since doing less hard jobs. denies any MVA or injury that started this. occ will hear heart beat in ear d/t some BP issues. She is working w/MD re: BP. occ gets dizzy when sit up from bed. denies any other time. Reports she has been swollen in abdomen. Reports a lot of flatulence and hemroids. Had a barium swallow. BM regular. She occ ends up vomitting. Denies radiating symptoms in UEs/LEs. Wears back brace and it helps only some. Had uterine cancer and hysterectomy (2012)-having further follow up with this as a result. Had 4 c sections. Treatment Goals Patient/Caregiver Goals Dec pain when working PT-OP-C Subjective Start: 05/25/24 18:13 Freq: Status: Active Protocol: Document 06/14/24 07:32 SP (Rec: 06/14/24 08:19 SP [id number]) OP-PT Subjective Patient Comments Patient Comments Pt reports she is good with the seated stretching to help decreased pain and increase mobility. She performs open book and incorporates her self modified supine mobility core boat pose BLE press outs before gets out out of bed to loosen up, when wakes up the morning which helps to be able to move for the day. PT-OP-G Mobility & Gait Start: 05/25/24 18:13 Freq: Status: Active Protocol: Document 05/26/24 09:09 [facility] (Rec: 05/26/24 09:50 [facility] [id number]) OP Gait Assessment Comments Gait Comments excessive rotation upper lumbar during gait, lat lean and dec push off PT-OP-J Posture/Palpation/Skin Start: 05/25/24 18:13 Freq: Status: Active Protocol: Document 05/26/24 09:09 [facility] (Rec: 05/26/24 09:[id number] Posture Evaluation [facility] Postural Classification System [facility] Postural Classifications Posterior/Anterior Vertical Compression Test 1 Elbow Flexion Test 0 Lumbar Protective Mechanism Left AP 0 Lumbar Protective Mechanism Right AP 0 Lumbar Protective Mechanism Left PA 0 Lumbar Protective Mechanism Right PA 0 Comments Posture Comments L iliac crest higher, equal leg length, IR of L>R femur, L pelvic shear, L trunk rot, R scap mofr ant tipped, fwd neck , inc kyphosis, ant pelvic tilt PT-OP-K Range of Motion Start: 05/25/24 18:13 Freq: Status: Active Protocol: Document 06/01/24 11:36 [facility] (Rec: 06/01/24 12:32 [facility] [id number]) Cervical Spine Range of Motion Cervical Spine Active Degrees Flexion 27 Extension 16 Rotation Left 34 Rotation Right 35 Lateral Flexion Left 16 Lateral Flexion Right 10 ROM Limitations Pain PT-OP-L Special Tests Start: 05/25/24 18:13 Freq: Status: Active Protocol: Document 05/26/24 09:09 [facility] (Rec: 05/26/24 09:50 [facility] [id number]) Special Tests Lumbar Spine Special Tests Slump Test Results positiv B PT-OP-M Strength Start: 05/25/24 18:13 Freq: Status: Active Protocol: Document 05/26/24 09:09 [facility] (Rec: 05/26/24 09:50 [facility] [id number]) Hip Strength Hip Manual Muscle Testing Right Flexion (L2) 3+ Fair+ Extension (S1) 3 Fair Abduction 3 Fair External Rotation 4 Good Internal Rotation 5 Normal Left Flexion (L2) 3+ Fair+ Extension (S1) 3 Fair Abduction 3 Fair External Rotation 3 Fair Internal Rotation 5 Normal Knee Strength Knee Manual Muscle Testing Right Flexion (S2) 5 Normal Extension (L3) 5 Normal Left Flexion (S2) 5 Normal Extension (L3) 5 Normal PT-OP-T Assessment and Plan Start: 05/25/24 18:13 Freq: Status: Active Protocol: Document 08/18/24 12:27 [facility] (Rec: 08/18/24 12:28 [facility] [id number]) Physical Therapy Assessment Goals posture Pin Sticker Goal (LTG) Pt will have improved posture by improvement in VCT to at least 4/5 to allwo greater time in standing w/o inc pain LTG Duration 4/2 ROM Short Term Goal (STG) Pt will report improved ease w /movement w/hips w/less feeling of tightness/ restriction STG Duration 3/2 Pin Sticker Goal (LTG) Pt will have w/in 80% of full range cervical ROM w/o inc pain to allow improved function LTG Duration 4/2 strength Short Term Goal (STG) Pt will be indep w/HEP STG Duration 3/2 Pin Sticker Goal (LTG) Pt will score at least 4+/5 on MMT BLE and at least 3/5 EFT &LPM to show improved stability. LTG Duration 4/2 Assessment Summary Assessment Pt made limited progress w/PT and was having significant pain. No showed appt then cancelled last and did not follow up to schedule more. DC d/t no longer attending PT Physical Therapy Plan Discharge Physical Therapy Discharge Reasons No Longer Attending PT
== END 2024-08-19 09:43 | disposition home or self-care (01) ==
LOC: PHYS 07:30
PROVIDERS: Family Provider Family Medicine; PCP Family Medicine; Referring Provider Family Medicine; Visit Provider Family Medicine
DX: M79.10 Myalgia, unspecified site (principal); M54.9 Dorsalgia, unspecified; G89.29 Other chronic pain; M54.2 Cervicalgia; R29.3 Abnormal posture
CPT/HCPCS: 97110; 97140; 97162